=== PATIENT | female | born 1990 | race Caucasian/White ===

== ENCOUNTER 2017-05-05 11:58 | Emergency (ER) | payer BC, OTHER ==
--- NOTE | 2017-05-05 12:58 | EDM.PDOC ---
ED HPI GENERAL MEDICAL PROBLEM - General Chief Complaint: Syncope Stated Complaint: SYNCOPAL EPISODE Time Seen by Provider: 05/05/17 12:20 Source of Information: Reports: Patient, Family () History Limitations: Reports: No Limitations - History of Present Illness INITIAL COMMENTS - FREE TEXT/NARRATIVE: 26-year-old female presents to the emergency room with a syncopal episode that occurred approximately 11:00 while in [employer]. Patient states that she was kneeling lightheaded and passed out. There was no trauma she did not hit her head. Her felt approximately 45 seconds before she came to. She reports no significant pain or discomfort she does not little bit of a mild headache at this time. She is in her first trimester with her first approximately 8 weeks. She has an piler appointment coming up this Saturday. This will be her first appointment. She states that she hadn't eaten since last night at approximate 7:00 at a wedding. She otherwise been trying to eat about every 3 hours. Upon arrival we had a blood glucose check her blood sugars were 89. She states that she feels much better at this time. She was not sweaty or diaphoretic. She denied any chest pain or shortness of breath. She's not had any abdominal pain. She denies any bleeding, no hematuria. She does take folic acid vitamin. It was recommended that she come in and be evaluated. Onset: Today, Sudden Onset Date: 05/05/17 Onset Time: 11:00 Duration: Minutes: (less than 1 minute), Improving Location: Reports: Generalized Severity: Mild Improves with: Reports: None Worsens with: Reports: None Associated Symptoms: Reports: Headaches, Syncope. Denies: Chest Pain, Diaphoresis, Nausea/Vomiting, Seizure, Shortness of Breath headache Pain Score (Numeric/FACES): 1 - Related Data Allergies Allergy/AdvReac Type Severity Reaction Status Date / Time No Known Drug Allergies Allergy Cannot Verified 05/05/17 12:20 Remember Home Meds: Home Meds Folic Acid 0.8 mg PO DAILY 05/05/17 [History] Vits #93/Iron Fum/FA [ Formula Tablet] 1 tab PO DAILY 05/05/17 [History] Past Medical History HEENT History: Reports: Impaired Vision, Other (See Below) Other HEENT History: wears corrective lenses Cardiovascular History: Reports: None [employer] History: Reports: - Infectious Disease History Infectious Disease History: Reports: Chicken Pox - Past Surgical History HEENT Surgical History: Reports: Adenoidectomy, Tonsillectomy Cardiovascular Surgical History: Reports: None Social & Family History - Family History Family Medical History: Noncontributory - Tobacco Use Smoking Status *Q: Never Smoker - Caffeine Use Caffeine Use: Reports: None ED ROS GENERAL - Review of Systems Review Of Systems: See Below Constitutional: Reports: Fatigue. Denies: Diaphoresis HEENT: Reports: No Symptoms. Denies: Ear Pain, Throat Pain, Throat Swelling, Vertigo Respiratory: Reports: No Symptoms Cardiovascular: Reports: Syncope. Denies: Blood Pressure Problem Endocrine: Reports: No Symptoms GI/Abdominal: Reports: No Symptoms : Denies: Discharge, Dysuria, Hematuria Musculoskeletal: Reports: No Symptoms Skin: Reports: No Symptoms Neurological: Reports: Syncope. Denies: Confusion, Dizziness, Headache, Numbness, Seizure, Trouble Speaking, Difficulty Walking, Gait Disturbance Psychiatric: Reports: No Symptoms Hematologic/Lymphatic: Reports: No Symptoms - Physical Exam Exam: See Below Exam Limited By: No Limitations General Appearance: Alert, WD/WN, No Apparent Distress Eye Exam: Bilateral Eye: EOMI, PERRL Ears: Normal External Exam, Normal TMs Nose: Normal Inspection Throat/Mouth: Normal Inspection, Normal Lips, Normal Teeth, Normal Gums, Normal Oropharynx, Normal Voice, No Airway Compromise Head Exam: Atraumatic, Normocephalic Neck: Normal Inspection, Supple, Full Range of Motion. No: Carotid Bruit, Lymphadenopathy (L), Lymphadenopathy (R) Respiratory/Chest: No Respiratory Distress, Lungs Clear, No Accessory Muscle Use Cardiovascular: Normal Peripheral Pulses, Regular Rate, Rhythm, No JVD, No Murmur GI/Abdominal: Soft Neuro Exam (Abbreviated): Alert, Oriented, No Motor/Sensory Deficits Back Exam: Normal Inspection Extremities: Normal Inspection, No Pedal Edema Psychiatric: Normal Affect, Normal Mood Skin Exam: Warm, Dry, Intact, Normal Color, No Rash Course - Vital Signs Last Recorded V/S: Last Vital Signs Temp 97.6 F 05/05/17 12:14 Pulse 68 05/05/17 12:14 Resp 16 05/05/17 12:14 BP 117/51 L 05/05/17 12:14 Pulse Ox 98 05/05/17 12:14 - Orders/Labs/Meds Orders: Active Orders 24 hr Category Date Time Status Blood Glucose Check, Bedside [RC] ONETIME Care 05/05/17 12:21 Active CULTURE URINE [RM] Stat Lab 05/05/17 13:27 Uncollected Labs: Laboratory Tests 05/05/17 05/05/17 05/05/17 Range/Units 12:35 12:35 13:05 WBC 8.0 (5.0-10.0) 10^3/uL RBC 4.57 (3.80-5.50) 10^6/uL Hgb 13.1 (12.0-16.0) g/dL Hct 39.9 (37.0-47.0) % MCV 87.3 (82.0-92.0) fL MCH 28.6 (27.0-31.0) pg MCHC 32.7 (32.0-36.0) g/dL RDW 12.5 (11.5-14.5) % Plt Count 272 (150-300) 10^3/uL MPV 7.5 (7.4-10.4) fL Neut % (Auto) 68.9 (50.0-70.0) % Lymph % (Auto) 20.8 (20.0-40.0) % [place] % (Auto) 8.6 H (2.0-8.0) % Eos % (Auto) 0.8 L (1.0-3.0) % Baso % (Auto) 0.9 (0.0-1.0) % Neut # (Auto) 5.4 (2.5-7.0) 10^3/uL Lymph # (Auto) 1.7 (1.0-4.0) 10^3/uL [place] # (Auto) 0.7 (0.1-0.8) 10^3/uL Eos # (Auto) 0.1 (0.1-0.3) 10^3/uL Baso # (Auto) 0.1 (0.0-0.1) 10^3/uL Sodium 135 L (136-145) mmol/L Potassium 3.9 (3.3-5.3) mmol/L Chloride 100 (98-115) mmol/L Carbon Dioxide 25.3 (21.0-32.0) mmol/L BUN 8 (6-25) mg/dL Creatinine 0.53 (0.51-1.17) mg/dL Est Cr Clr Drug Dosing 143.47 mL/min Estimated GFR (MDRD) > 60 mL/min Glucose 81 (70-110) mg/dL Calcium 8.7 (8.7-10.3) mg/dL HCG, Quant 63186 mIU/mL Specimen Type Urincc Urine Color Yellow (YELLOW) Urine Appearance Cloudy H (CLEAR) Urine pH 7.0 (5.0-9.0) Ur Specific [place] 1.020 (1.005-1.030) Urine Protein 30 H (NEGATIVE) mg/dL Urine Glucose (UA) Negative (NEGATIVE) mg/dL Urine Ketones Negative (NEGATIVE) mg/dL Urine Occult Blood Trace-intact H (NEGATIVE) Urine Nitrite Negative (NEGATIVE) Urine Bilirubin Negative (NEGATIVE) Urine Urobilinogen 0.2 (0.2-1.0) E.U./dL Ur Leukocyte Esterase Trace H (NEGATIVE) Urine RBC 5-10 H /HPF Urine WBC 5-10 H /HPF Ur Epithelial Cells Moderate H /LPF Amorphous Sediment Moderate H (0/HPF) /HPF Urine Bacteria Moderate H (NONE TO FEW) /HPF - Re-Assessments/Exams Free Text/Narrative Re-Assessment/Exam: 05/05/17 13:14 Patient was given a glass of apple juice. She was able to go to the bathroom and void without difficulty. She denies feeling nauseous or lightheaded. She denies any dizziness. Departure - Departure Time of Disposition: 13:34 Disposition: Home, Self-Care 01 Condition: Good Clinical Impression: First trimester Episode of syncope Qualifiers: Syncope type: unspecified Qualified Code(s): R55 - Syncope and collapse UTI (urinary tract infection) during Qualifiers: Trimester: first trimester Qualified Code(s): O23.41 - Unspecified infection of urinary tract in , first trimester - Discharge Information Instructions: Urine Culture and Sensitivity Testing, Hypoglycemia, [id number] , Vasovagal Syncope, Adult Referrals: Estefania Pineda PA-C [Primary Care Provider] - Forms: ED Department Discharge Additional Instructions: 1. Rest 2. Continue with oral hydration 3. Eat small meals every 3 hours. 4. Getting up from a lying, seating position to standing, arise slowly. 5. Keep your scheduled piler appointment this coming Saturday. 6. F/u culture results of urine on Saturday. - My Orders Last 24 Hours: My Active Orders 05/05/17 12:21 Blood Glucose Check, Bedside [RC] ONETIME 05/05/17 13:27 CULTURE URINE [RM] Stat - Assessment/Plan Last 24 Hours: My Active Orders 05/05/17 12:21 Blood Glucose Check, Bedside [RC] ONETIME 05/05/17 13:27 CULTURE URINE [RM] Stat Assessment:: 1. Syncope 2. First trimester . Plan: 1. Rest 2. Continue with oral hydration 3. Eat small meals every 3 hours. 4. Getting up from a lying, seating position to standing, arise slowly. 5. Keep your scheduled piler appointment this coming Saturday. 6. F/u culture results of urine on Saturday.
[2017-05-05 13:26] LABS: CHLORIDE,CL 100 mmol/L (98-115); SODIUM,NA 135 mmol/L (136-145)
== END 2017-05-05 13:40 | disposition home or self-care (01) ==
LOC: KA.ED 11:58
DX: O99.89 Other specified diseases and conditions complicating pregnancy, childbirth and the puerperium (principal); R55 Syncope and collapse; O23.41 Unspecified infection of urinary tract in pregnancy, first trimester; Z79.899 Other long term (current) drug therapy; Z3A.08 8 weeks gestation of pregnancy
CPT/HCPCS: 36415; 80048; 81001; 84702; 85025; 99284

== ENCOUNTER 2023-03-23 16:52 | Emergency (ER) | payer OTHER ==
[2023-03-23] MEDS ORDERED: Ondansetron 4 MG/2 ML SDV IVPUSH ONE (17:27)
[2023-03-23] MEDS ORDERED: Sodium Chloride 0.9% 1,000 ML IV ONE (17:27)
[2023-03-23] MEDS ORDERED: Sodium Chloride 0.9% 1,000 ML ONE (17:29)
[2023-03-23] MEDS ORDERED: HYDROmorphone 1 MG/ML Syringe IVPUSH ONE (17:37)
[2023-03-23 17:38] LABS: BASOPHILS ABSOLUTE AUTO 0.03 10^3/uL (0.00-0.10); BASOPHILS PERCENT AUTO 0.3 % (0.0-1.0); EOSINOPHILS ABSOLUTE AUTO 0.08 10^3/uL (0.10-0.30); EOSINOPHILS PERCENT AUTO 0.8 % (1.0-3.0); HEMATOCRIT 42.4 % (37.0-47.0); HEMOGLOBIN 14.2 g/dL (12.0-16.0); IMMATURE GRAN ABSOLUTE AUTO 0.01 10^3/uL (0.00-0.50); IMMATURE GRAN PERCENT AUTO 0.1 % (0.0-5.0); LYMPHOCYTES ABSOLUTE AUTO 2.19 10^3/uL (1.00-4.00); LYMPHOCYTES PERCENT AUTO 23.2 % (20.0-40.0); MEAN CORPUSCULAR HEMOGLOBIN 28.6 pg (27.0-31.0); MEAN CORPUSCULAR HGB CONC 33.5 g/dL (32.0-36.0); MEAN CORPUSCULAR VOLUME 85.5 fL (82.0-92.0); MEAN PLATELET VOLUME 9.8 fL (7.4-10.4); MONOCYTES ABSOLUTE AUTO 0.58 10^3/uL (0.10-0.80); MONOCYTES PERCENT AUTO 6.1 % (2.0-8.0); NEUTROPHILS ABSOLUTE AUTO 6.57 10^3/uL (2.50-7.00); NEUTROPHILS PERCENT AUTO 69.5 % (50.0-70.0); PLATELET COUNT,PLT 262 10^3/uL (150-400); RED BLOOD CELL COUNT 4.96 10^6/uL (3.80-5.50); RED CELL DISTRIBUTION WIDTH 11.5 % (11.5-14.5); WHITE BLOOD CELL COUNT,WBC 9.46 10^3/uL (5.00-10.00)
[2023-03-23 17:48] LABS: APPEARANCE,URINE CLEAR (CLEAR); BILIRUBIN,URINE NEGATIVE (NEGATIVE); COLOR,URINE YELLOW (YELLOW); GLUCOSE,URINE NEGATIVE (NEGATIVE); KETONES,URINE NEGATIVE (NEGATIVE); LEUKOCYTE ESTERASE,URINE TRACE (NEGATIVE); NITRITE,URINE NEGATIVE (NEGATIVE); OCCULT BLOOD,URINE TRACE-INTACT (NEGATIVE); PH,URINE 5.5 (5.0-9.0); PROTEIN,URINE NEGATIVE (NEGATIVE); UROBILINOGEN,URINE 0.2 E.U./dL (0.2-1.0)
[2023-03-23 18:35] LABS: ALBUMIN 4.01 g/dL (3.40-5.00); ANION GAP 11.8 mmol/L (5-15); BILIRUBIN TOTAL 0.4 mg/dL (0.2-1.0); CALCIUM 9.5 mg/dL (8.7-10.3); CARBON DIOXIDE,CO2 29.3 mmol/L (21.0-32.0); CREATININE 0.6 mg/dL (0.51-1.17); POTASSIUM,K 4.1 mmol/L (3.5-5.1); PROTEIN TOTAL,TP 7.7 g/dL (6.4-8.2)
[2023-03-23 18:47] LABS: RBC,URINE 0-5 /HPF (0-5); WBC,URINE 0-5 /HPF (0-5)
[2023-03-23] MEDS: Cyclobenzaprine 10 MG Tab PO ONE ×2 (19:21→19:29)
== END 2023-03-23 19:37 | disposition home or self-care (01) ==
LOC: KA.ED 16:52
DX: R10.84 Generalized abdominal pain (principal); K59.00 Constipation, unspecified; Z79.899 Other long term (current) drug therapy
CPT/HCPCS: 36415; 74018; 80053; 81001; 81025; 85025; 96374; 96375; 99284; A9270; J1170; J2405; J7030